=== PATIENT | male | born 2000 | race African-American/Black ===

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

== ENCOUNTER 2023-04-16 12:05 | Outpatient (CLI) | payer OTHER, SELFPAY ==
--- NOTE | ~2023-04-16 | XR_ITS ---
EXAMINATION: XR chest 2V 04/16/2023 12:32 INDICATION: Screening PROCEDURE: 2 view chest COMPARISON: 08/17/2019 FINDINGS: The lungs are clear. The cardiomediastinal silhouette is within normal limits. There are no pleural effusions. There is no pneumothorax suspected. IMPRESSION: 1: NO ACUTE CARDIOPULMONARY DISEASE. Reviewed, dictated and finalized at location B. NG SECTION CHIEF
== END 2023-04-16 12:06 | disposition home or self-care (01) ==
PROVIDERS: PCP Emergency Medicine; Visit Provider Emergency Medicine
DX: Z13.9 Encounter for screening, unspecified (principal)
CPT/HCPCS: 71046